=== PATIENT | male | born 1950 | race Caucasian/White ===

== ENCOUNTER 2019-12-07 13:07 | Outpatient (CLI) | payer MEDICARE, SELFPAY ==
--- NOTE | ~2019-12-07 | CT_ITS ---
EXAMINATION: CT shoulder RT wo con DATE: 12/07/2019 14:39 INDICATION: Right total shoulder arthroplasty. Subscapularis insufficiency. TECHNIQUE: High resolution computed tomography (CT) of the right shoulder was performed without intra venous contrast. Additional sagittal and coronal reconstructions were performed. Automated exposure c ontrol and iterative reconstruction technique were employed. The dose-length product was 618.28 mGy-c m. COMPARISON: Multiple shoulder radiographs dated between 11/26/2019 and 11/25/[address] dated 11/13/2018 FINDINGS: Right total shoulder arthroplasty which is in near-anatomic alignment. The humeral component appears well seated with no periprosthetic lucency to suggest loosening or infection. There appears to be inc reased lucency along the caudal margin of the glenoid component however assessment is limited by meta llic streak artifact from the adjacent humeral component. There is a bone fragment positioned between the anteromedial aspect of the proximal humerus and the anteroinferior margin of the glenoid which i s suspicious for a chronically avulsed lesser tuberosity fracture fragment with secondary resorptive changes. 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 There is mild to moderate fatty atro phy of the subscapularis and mild supraspinatus muscle atrophy with flattening of its cephalad margin . No evident glenohumeral joint effusion. There is a dumbbell-shaped lipoma with a portion located de ep to the trapezius which measures 9.5 x 8.0 x 1.7 cm and which extends through a defect in the muscl e into the subcutaneous tissues with the subcutaneous portion of the lipoma measuring 8.5 x 4.8 x 3.7 cm. There are several small heterotopic ossicles within the superficial component of the lipoma like ly sequela of chronic fat necrosis. Visualized portions of the lungs are clear. Dual-lead cardiac pac emaker with one lead tip at the right atrial appendage and the second extending beyond the inferior m argin of the [id number]. Chronic T8 compression fracture with mild anterior wedging. IMPRESSION: 1. 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 2. Right total shoulder arthroplasty with increased lucency along the caudal aspect of the glenoid co mponent which could be related to loosening. Assessment is however significantly limited by streak ar tifact from the humeral component. 3. Large dumbbell-shaped lipoma with deeper and more superficial components communicating through a d efect in the right trapezius muscle. Reviewed, dictated and finalized at location A. IMPRESSION: 1. Likely chronic avulsion fracture of the lesser tuberosity footplate of the s ubscapularis tendon with mild to moderate fatty atrophy of the subscapularis mu scle. 2. Right total shoulder arthroplasty with increased lucency along the caudal as pect of the glenoid component which could be related to loosening. Assessment i s however significantly limited by streak artifact from the humeral component. 3. Large dumbbell-shaped lipoma with deeper and more superficial components com municating through a defect in the right trapezius muscle.
[2019-12-07 15:43] LABS: Hematocrit 38.5 % (42.0-52.0); Hemoglobin 12.7 g/dL (14.0-18.0)
[2019-12-07 15:52] LABS: Hemoglobin A1C 7.9 % (<5.7)
[2019-12-07 15:54] LABS: Albumin Level 4.3 g/dL (3.5-5.1); Estimated Glomerular Filt Rate > 60
[2019-12-07 16:30] LABS: Urine Cotinine NEGATIVE
== END 2019-12-07 13:08 | disposition home or self-care (01) ==
PROVIDERS: Visit Provider Orthopaedic Surgery
DX: I25.10 Atherosclerotic heart disease of native coronary artery without angina pectoris (principal); E11.9 Type 2 diabetes mellitus without complications; M62.9 Disorder of muscle, unspecified; M25.511 Pain in right shoulder; Z01.818 Encounter for other preprocedural examination; Z96.611 Presence of right artificial shoulder joint
CPT/HCPCS: 73200; 80307; 82040; 82565; 83036; 85014; 85018

== ENCOUNTER 2019-12-17 14:08 | Outpatient (CLI) | payer MEDICARE, SELFPAY ==
[2019-12-17 15:30] LABS: Basophils Absolute Auto 0.1 K/mm3 (0.0-0.1); Eosinophils Percent Auto 0.7 % (0-4.4); Hematocrit 36.8 % (42.0-52.0); Immature Granulocyte Percent A 4.9 % (0-0.5); Lymphocytes Absolute Auto 1.38 K/mm3 (0.9-3.2); Lymphocytes Percent Auto 33.7 % (18.3-44.2); Mean Corpuscular HGB Conc 32.6 g/dl (32-36); Mean Corpuscular Hemoglobin 29.1 pg (26-34); Mean Corpuscular Volume 89.3 fl (80-100); Mean Platelet Volume 10.5 fl (7.4-10.4); Monocytes Absolute Auto 0.5 K/mm3 (0.1-0.6); Monocytes Percent Auto 11.2 % (2.6-8.5); Neutrophils Percent Auto 47.5 % (45.5-73.1); Platelet Count Result 234 k/mm3 (150-375); Red Blood Count 4.12 M/mm3 (4.6-6.20); Red Cell Distribution Width 14.5 % (11.5-14.5); White Blood Count 4.1 K/mm3 (4.5-10.0)
[2019-12-17 15:46] LABS: Anion Gap 10 mmol/L (8-16); Blood Urea Nitrogen 15 mg/dL (9-20); Calcium 9.7 mg/dL (8.4-10.2); Carbon Dioxide 29 mmol/L (22-30); Chloride 100 mmol/L (98-107); Estimated Glomerular Filt Rate > 60; Glucose 169 mg/dL (75-110); Sodium 139 mmol/L (137-145)
[2019-12-17 16:26] LABS: Digoxin 0.5 ng/mL (0.8-2.0)
[2019-12-17 16:47] LABS: CRP 1.8 mg/dL (<1.0)
[2019-12-17 17:00] LABS: Erythrocyte Sedimentation Rate 43 mm/hr (0-20)
== END 2019-12-17 14:09 | disposition home or self-care (01) ==
LOC: ANHSURGERY 14:10
PROVIDERS: Anesthesiology; PCP Family Medicine; Visit Provider Orthopaedic Surgery
DX: M25.411 Effusion, right shoulder (principal); E11.9 Type 2 diabetes mellitus without complications; Z51.81 Encounter for therapeutic drug level monitoring; Z01.818 Encounter for other preprocedural examination
CPT/HCPCS: 36415; 80048; 80162; 85025; 85652; 86140; 87070; 87075; 87081; 87205; 89051

== ENCOUNTER 2019-12-17 14:20 | Outpatient (NON) | payer MEDICARE, SELFPAY ==
[2019-12-17 16:09] LABS: Appearance Synovial Fluid Cloudy (Clear); Color Synovial Fluid Red (Colorless); Nucleated Cell Synovial Fluid 18695 /uL (0-200); Source Synovial Fluid Synovial fluid
[2019-12-17 16:25] LABS: Lymphocytes Synovial Fluid 5 %; Monocytes Synovial Fluid 4 %; Neutrophils Synovial Fluid 91 % (0-25)
== END 2019-12-17 14:21 ==
PROVIDERS: PCP Family Medicine; Visit Provider Orthopaedic Surgery
DX: M25.411 Effusion, right shoulder (principal); Z96.611 Presence of right artificial shoulder joint
CPT/HCPCS: 87070; 87075; 87076; 87205; 89051